=== PATIENT | male | born 1955 | race Caucasian/White ===

== ENCOUNTER 2017-01-11 06:40 | Outpatient (CLI) | payer OTHER ==
[2017-01-11 07:16] LABS: BASOPHILS # (AUTO) 0.1 10^3/uL (0.0-0.1); BASOPHILS % (AUTO) 1.1 %; EOSINOPHILS # (AUTO) 0.2 10^3/uL (0.0-0.7); EOSINOPHILS % (AUTO) 2.3 %; HGB - HEMOGLOBIN 15.3 g/dL (14.0-18.0); LYMPHOCYTES # (AUTO) 2.1 10^3/uL (1.5-3.5); LYMPHOCYTES % (AUTO) 28.8 %; MEAN CORPUSCULAR HEMOGLOBIN 30.9 pg (27.0-31.0); MEAN CORPUSCULAR HGB CONC 34.8 g/dL (32.0-36.0); MEAN CORPUSCULAR VOLUME 88.7 fL (80.0-94.0); MEAN PLATELET VOLUME 7.1 fL (7.4-11.4); MONOCYTES # (AUTO) 0.5 10^3/uL (0.0-1.0); MONOCYTES % (AUTO) 7.3 %; NEUTROPHILS # (AUTO) 4.4 10^3/uL (1.5-6.6); NEUTROPHILS % (AUTO) 60.5 %; NUCLEATED RED BLOOD CELLS AUTO 0.1 /100WBC; RED BLOOD COUNT 4.96 10^6/uL (4.70-6.10); UNCORRECTED WHITE BLOOD COUNT 7.2 x10^3/uL; WHITE BLOOD COUNT 7.2 x10^3/uL (4.8-10.8)
[2017-01-11 07:29] LABS: ALBUMIN/GLOBULIN RATIO 1.3 (1.0-2.2); BILIRUBIN,TOTAL 0.8 mg/dL (0.2-1.0); BUN - BLOOD UREA NITROGEN 18 mg/dL (6-20); CARBON DIOXIDE - CO2 26 mmol/L (21-32); CHLORIDE 103 mmol/L (101-111); CHOL/HDL RATIO 2.5 (<5.0); CHOLESTEROL 178 mg/dL; CREATININE 0.8 mg/dL (0.6-1.2); GFR - MDRD 99 (>89); GLUCOSE 107 mg/dL (70-100); HDL CHOLESTEROL 70 mg/dL; LDL/HDL RATIO 1.3 (<3.6); SODIUM 138 mmol/L (135-145); TOTAL PROTEIN 7.7 g/dL (6.7-8.2); TRIGLYCERIDES 75 mg/dL; VLDL CHOLESTEROL 15 mg/dL
== END 2017-01-11 06:41 | disposition home or self-care (01) ==
LOC: LAB 06:40
PROVIDERS: ATTEND Nurse Practitioner Primary Care
DX: Z12.5 Encounter for screening for malignant neoplasm of prostate (principal); I10 Essential (primary) hypertension; E78.5 Hyperlipidemia, unspecified; Z68.33 Body mass index [BMI] 33.0-33.9, adult; Z79.899 Other long term (current) drug therapy
CPT/HCPCS: 36415; 80053; 80061; 84153; 84443; 85025

== ENCOUNTER 2017-03-04 14:29 | Outpatient (CLI) | payer OTHER | END 2017-03-04 14:30 | disposition home or self-care (01) | LOC: SC 14:29 | PROVIDERS: ATTEND Internal Medicine Pulmonary Disease | DX: G47.33 Obstructive sleep apnea (adult) (pediatric) (principal) | CPT/HCPCS: 99203; 99212 ==

== ENCOUNTER 2017-03-26 12:53 | Outpatient (CLI) | payer OTHER ==
[2017-03-26 13:40] LABS: HEMOGLOBIN A1C 0.6 g/dL
== END 2017-03-26 12:54 | disposition home or self-care (01) ==
LOC: LAB 12:53
PROVIDERS: ATTEND Nurse Practitioner Primary Care
DX: R73.9 Hyperglycemia, unspecified (principal)
CPT/HCPCS: 36415; 83036

== ENCOUNTER 2017-06-10 14:29 | Emergency (ER) | payer OTHER ==
[2017-06-10 14:43] VITALS: BP 139/88
--- NOTE | 2017-06-10 15:25 | ED Physician Documentation ---
History of Present Illness - Stated complaint Stated Complaint: DVT RULE OUT RLE - Chief complaint Chief Complaint: Ext Problem - History obtained from History obtained from: Patient - History of Present Illness Timing: How many weeks ago (2) Pain level max: 6 Pain level now: 5 Improved by: rest Worsened by: walking, standing - Additonal information Additional information: Patient is a 61-year-old gentleman who presents to the emergency department with right lower extremity swelling for the past 2 weeks. Saw his doctor for this. But now becoming more painful and swollen. Recommended to come here for an ultrasound to rule out DVT. Review of Systems Constitutional: denies: Fever, Chills Throat: denies: Sore throat Cardiac: denies: Chest pain / pressure, Palpitations, Calf pain Respiratory: denies: Cough, Wheezing : denies: Dysuria Skin: denies: Rash Musculoskeletal: denies: Neck pain, Back pain Neurologic: denies: Headache PD PAST MEDICAL HISTORY - Past Medical History Past Medical History: Yes Cardiovascular: Hypertension, High cholesterol Musculoskeletal: Chronic back pain - Past Surgical History Past Surgical History: Yes General: Other (hernia repair) - Present Medications Home Medications: Ambulatory Orders Medication Instructions Recorded Confirmed Atorvastatin [Lipitor] 10 mg ORAL DAILY 06/10/17 06/10/17 Hydrochlorothiazide 20 mg PO DAILY 06/10/17 06/10/17 Omeprazole 20 mg PO DAILY 06/10/17 06/10/17 - Allergies Allergies/Adverse Reactions: Allergies Allergy/AdvReac Type Severity Reaction Status Date / Time lisinopril Allergy Rash Verified 06/10/17 14:43 - Living Situation Living Arrangement: reports: At home - Social History Does the pt smoke?: No Does the pt have substance abuse?: No - Family History Family history: reports: Non contributory PD ED PE NORMAL - Vitals Vital signs reviewed: Yes - General General: Alert and oriented X 3, No acute distress - HEENT HEENT: Moist mucous membranes - Neck Neck: Supple, no meningeal sign - Cardiac Cardiac: RRR, Strong equal pulses - Respiratory Respiratory: No respiratory distress, Clear bilaterally - Abdomen Abdomen: Soft, Non tender, Non distended - Derm Derm: Warm and dry - Extremities Extremities: Other (Mild posterior calf tenderness of the right lower extremity. Strong pedal pulses bilaterally. Strong posterior tibialis pulses.) - Neuro Neuro: Alert and oriented X 3 Results - Vitals Vitals: Vital Signs - 24 hr 06/10/17 14:41 Temperature 36.8 C Heart Rate 85 Respiratory 18 Rate Blood Pressure 139/88 H O2 Saturation 99 Oxygen O2 Source Room air - Rads (name of study) RLE duplex US Radiology: Prelim report reviewed, EMP read contemporaneously, See rad report ( no DVT) PD MEDICAL DECISION MAKING - ED course Complexity details: reviewed results, re-evaluated patient, considered differential, d/w patient ED course: Patient is a 61-year-old gentleman with a two-week history of right calf pain, worsening over the past few days. He is found to have a normal duplex venous ultrasound of the right lower extremity. No DVT. Possible that this is related to his chronic back pain and sciatica, he has an MRI scheduled. Also may be due to claudication and recommend an arterial ultrasound with his doctor. No evidence of acute occlusion at this time. Does have strong peripheral pulses. Patient counseled regarding signs and symptoms for which I believe and urgent re-evaluation would be necessary. Patient with good understanding of and agreement to plan and is comfortable going home at this time This document was made in part using voice recognition software. While efforts are made to proofread this document, sound alike and grammatical errors may occur. No evidence of infection or compartment syndrome. Departure - Departure Disposition: 01 Home, Self Care Clinical Impression: Pain of lower extremity Qualifiers: Laterality: right Qualified Code(s): M79.604 - Pain in right leg Condition: Good Instructions: ED Strain Muscle Ext Follow-Up: Christian Manjarrez ARNP [Primary Care Provider] - Within 1 week Comments: Your ultrasound is normal today. Return if you worsen.
--- NOTE | 2017-06-10 15:41 | Ultrasound Report ---
RIGHT LEG VENOUS DUPLEX: 06/10/2017 CLINICAL INDICATION: Swelling, pain. TECHNIQUE: Real-time sonographic vascular imaging was performed by the auto clutch specialist through the right lower extremity utilizing both color flow and Doppler spectral analysis. Multiple operations support representative static images were saved for review. FINDINGS: A right lower extremity venous sonogram is performed revealing the common femoral, superficial femoral, profunda femoris, and popliteal veins to be adequately visualized without intraluminal defects. There is normal venous compression, augmentation, phasicity, and spontaneity of venous flow. In the calf, the visualized more cephalad portions of posterior tibial and peroneal veins are grossly compressible, without filling defects. IMPRESSION: NO EVIDENCE OF DEEP VENOUS THROMBOSIS. TD: 06/10/2017 15:36
== END 2017-06-10 15:35 | disposition home or self-care (01) ==
LOC: ED 14:29
DX: M79.604 Pain in right leg (principal); I10 Essential (primary) hypertension; E78.00 Pure hypercholesterolemia, unspecified
CPT/HCPCS: 99282; 99283

== ENCOUNTER 2017-06-12 16:26 | Outpatient (CLI) | payer OTHER ==
--- NOTE | 2017-06-13 13:28 | MRI Report ---
EXAM: MRI LUMBAR SPINE WITHOUT CONTRAST EXAM DATE: 06/12/2017 05:06 PM. CLINICAL HISTORY: Lumbar back pain with radiculopathy. COMPARISON: None. TECHNIQUE: Multiplanar, multisequence T1-weighted and fluid-sensitive sequences of the lumbar spine f rom T12 to S1 without contrast. Other: None. FINDINGS: Spinal Cord: The conus terminates at L1. The conus medullaris and cauda equina are unremarkable. Alignment: A mild rightward lumbar scoliosis has a Almodovar angle of 12 degrees as measured from T12 to L 3. Bone Marrow: Five [id number] lumbar vertebral bodies are assumed. No fractures. Type 1/2 endplat e changes at L2-L3 and L4-L5. Disk Levels/Facets: T11-T12: Unremarkable. T12-L1: A mild posterior disk protrusion results in minimal spinal canal narrowing. L1-L2: The disk is desiccated with moderate height loss. Anterior endplate spurring is present. A bro ad-based disk bulge results in mild spinal canal, minimal right foraminal, and mild left foraminal na rrowing. L2-L3: Severe disk height loss is accompanied by anterior endplate spurring. The disk is desiccated. A broad-based disk bulge and moderate ligamentum flavum hypertrophy result in moderate spinal canal a nd mild bilateral foraminal narrowing. L3-L4: The disk is desiccated with mild height loss. Anterior endplate spurring is present. A broad-b ased disk bulge, mild ligamentum flavum hypertrophy, and moderate facet hypertrophy, combined with ep idural fat to cause moderate to severe thecal sac, moderate right foraminal, and mild to moderate lef t foraminal narrowing. The AP dimension of the thecal sac is only 5 mm. L4-L5: Moderate disk height loss is accompanied by desiccation. A broad-based disk bulge, moderate li gamentum flavum hypertrophy, and moderate facet hypertrophy result in moderate spinal canal, severe r ight foraminal, and mild left foraminal narrowing. L5-S1: The disk is desiccated. A broad-based posterior disk protrusion and mild facet hypertrophy, co mbined with a right paracentral disk extrusion to cause moderate spinal canal and mild to moderate bi lateral foraminal narrowing. The extrusion measures 0.5 x 0.5 x 1.2 cm. It has direct mass-effect on the right S1 nerve root in the subarticular zone. Musculature: Normal. No edema or fatty atrophy. Other: The partially visualized retroperitoneum is unremarkable. IMPRESSION: 1. Mild rightward lumbar scoliosis. 2. Mild spinal canal and left foraminal narrowing at L1-L2 due to a disk bulge. 3. Moderate spinal canal and mild bilateral foraminal narrowing at L2-L3 due to disk and posterior el ement degenerative changes. 4. Moderate to severe thecal sac, moderate right foraminal, and mild to moderate left foraminal narro wing at L3-L4 due to disk and posterior element degenerative changes. 5. Moderate spinal canal, severe right foraminal, and mild left foraminal narrowing at L4-L5 due to d isk and posterior element degenerative changes. 6. Moderate spinal canal and mild to moderate bilateral foraminal narrowing at L5-S1 due to disk and posterior element degenerative changes. Comment: The following findings are so common in adults without low back pain that while we report th eir presence, they must be interpreted with caution and in the context of the clinical situation. (Re corby Kerr et al, Spine 2001) Prevalence of findings in patients without low back pain: Disk degeneration (any evidence): 92% Disk desiccation/T2 signal loss: 83% Disk height loss: 56% Disk bulge: 64% Disk protrusion: 32% Annular tear/high intensity zone: 38% [facility] Referring Provider Line: [phone] SITE ID: [id number]
== END 2017-06-12 16:27 | disposition home or self-care (01) ==
LOC: DI 16:26
PROVIDERS: ATTEND Nurse Practitioner Primary Care
DX: M51.25 Other intervertebral disc displacement, thoracolumbar region (principal); M51.36 Other intervertebral disc degeneration, lumbar region; M51.27 Other intervertebral disc displacement, lumbosacral region; M51.37 Other intervertebral disc degeneration, lumbosacral region; M47.896 Other spondylosis, lumbar region; M41.86 Other forms of scoliosis, lumbar region; M47.897 Other spondylosis, lumbosacral region
CPT/HCPCS: 72148